=== PATIENT | male | born 2000 | race Hispanic/Latino ===

== ENCOUNTER 2023-09-11 05:49 | Emergency (ER) | payer OTHER ==
[~2023-09-11] VITALS: Ht 172.7 cm; Wt 64.4 kg
[~2023-09-11 05:49] MED LIST: DOXY100C5 PO; NAPR-1023 PO
[2023-09-11 06:58] LABS: BASOPHILS # (AUTO) 0.05 K/uL (0.00-0.20); BASOPHILS % (AUTO) 0.5 % (0.0-5.0); EOSINOPHILS # (AUTO) 0.08 K/uL (0.00-0.70); EOSINOPHILS % (AUTO) 0.8 % (0.0-8.0); HEMATOCRIT 43.2 % (42-54); IMMATURE GRANULOCYTE ABSOLUTE 0.05 K/uL (0-1); LYMPHOCYTES % (AUTO) 9.5 % (21.0-51.0); MEAN CORPUSCULAR HGB CONC 34.3 g/dL (32.0-36.0); MEAN CORPUSCULAR VOLUME 87.4 fL (79-99); MONOCYTES # (AUTO) 0.5 K/uL (0.1-1.0); MONOCYTES % (AUTO) 4.9 % (3.0-13.0); NEUTROPHILS # (AUTO) 8.5 K/uL (1.8-7.7); NEUTROPHILS % (AUTO) 83.8 % (40.0-77.0); PLATELET COUNT (AUTO) 348 K/uL (130-400); RED BLOOD CELL COUNT(AUTO) 4.94 MIL/uL (4.50-6.20); RED CELL DISTRIBUTION WIDTH 11.7 % (11.0-15.5); WHITE BLOOD COUNT (AUTO) 10.1 K/uL (4.8-10.8)
[2023-09-11 07:03] LABS: APPEARANCE,URINE CLEAR (CLEAR); BILIRUBIN,URINE NEGATIVE (NEGATIVE); COLOR,URINE LIGHT-YELLOW (YELLOW); GLUCOSE, URINE (UA) NEGATIVE (NEGATIVE); KETONES,URINE NEGATIVE (NEGATIVE); LEUKOCYTE ESTERASE ,URINE 75 Leu/uL (NEGATIVE); NITRATE,URINE NEGATIVE (NEGATIVE); OCCULT BLOOD,URINE NEGATIVE (NEGATIVE); PROTEIN,URINE 10 mg/dL (NEGATIVE)
[2023-09-11 07:16] LABS: ALBUMIN 3.4 g/dL (3.5-5.0); BILIRUBIN,TOTAL 0.2 mg/dL (0.2-1.0); CREATININE 0.8 mg/dL (0.5-1.5); POTASSIUM 3.8 mmol/L (3.5-5.1); TOTAL PROTEIN, SERUM 6.6 g/dL (6.0-8.3)
[2023-09-11 07:40] LABS: ADD UA MICROSCOPIC YES
[2023-09-11] MEDS: 0.9%NACL 1000ML 1,000 ML IV ONE (07:40)
[2023-09-11] MEDS: FAMOTIDINE 20MG VIAL IV ONE (07:40)
[2023-09-11] MEDS: KETOROLAC 30MG VIAL (30MG/ML) IVP ONE (07:43)
[2023-09-11] MEDS: METOCLOPRAMIDE 10 MG/2 ML VIAL IVP ONE (07:43)
[2023-09-11 07:52] LABS: MUCUS,URINE RARE LPF (None Seen); WBC,URINE 26-50 /HPF (0-1)
[2023-09-11] MEDS: ACYCLOVIR 800 MG TABLET PO ONE (08:40)
[2023-09-11] MEDS ORDERED: CEPH500B PO (09:19)
[2023-09-11] MEDS ORDERED: ACYC-138 PO (09:19)
[2023-09-11] MEDS ORDERED: PHEN-847 PO (09:19)
[2023-09-11] MEDS: CEFTRIAXONE 2GM VIAL IVPB ONE (09:50)
[2023-09-11 10:02] VITALS: BP 117/70; PULSE 91; RESP 18; O2SAT 97
== END 2023-09-11 10:23 | disposition home or self-care (01) ==
LOC: EDH 05:49
DX: N39.0 Urinary tract infection, site not specified (principal); B02.9 Zoster without complications; F17.200 Nicotine dependence, unspecified, uncomplicated; Z79.899 Other long term (current) drug therapy; Z88.8 Allergy status to other drugs, medicaments and biological substances
CPT/HCPCS: 99284; 96365; 96375; 96361; 86592; 80053; 85025; 87088; 87797; 87486; 81001; 36415; J3490; J7030; J0696; J1885; J2765